=== PATIENT | male | born 1985 | race Hispanic/Latino ===

== ENCOUNTER 2023-05-15 16:16 | Emergency (ER) | payer SELFPAY ==
[~2023-05-15 16:16] MED LIST: Iopamidol 370 76% 100 ML VIAL ONE
[2023-05-15 22:42] LABS: #Eosinphils 0.1 10x3/uL (0.0-0.5); #Monocytes 1.3 10x3/uL (0.0-1.1); #Neutrophils 5.8 10x3/uL (1.5-8.4); %Basophils 0.5 % (0.0-2.0); %Eosinophils 0.6 % (0.0-6.0); %Lymphocytes 11.7 % (18.0-47.0); %Monocytes 15.6 % (0.0-10.0); %Neutrophils 71.4 % (40.0-75.0); Hematocrit 40.7 % (38.8-50.0); Hemoglobin 14.7 g/dL (13.5-17.5); Mean Corpuscular HGB CONC 36.1 g/dL (32.0-36.0); Mean Corpuscular Hemoglobin 32.7 pg (27.0-33.0); Mean Corpuscular Volume 90.4 fl (81.2-95.1); Mean Platelet Volume 12.9 fl (7.4-10.4); Platelet Count 110 10x3/uL (150-450); RBC Distribution Width 12.7 % (11.5-14.5); White Blood Cell (WBC) Count 8.1 10x3/uL (3.5-10.5)
[2023-05-15 22:50] LABS: INR-International Normal Ratio 1.1; PTT 30.2 sec (22.0-33.0); Prothrombin Time 12.3 sec (9.5-12.1)
[2023-05-15 23:35] LABS: ALT (SGPT) 118 U/L (8-55); AST (SGOT) 87 U/L (5-34); Albumin 4.4 g/dL (3.5-5.0); Alkaline Phosphatase 91 U/L (40-110); Anion Gap 19 mmol/L (10-20); BUN (Urea Nitrogen) 8 mg/dL (8.9-20.6); Bilirubin, Total 1.7 mg/dL (0.2-1.2); Calc. Creatinine Clearance 0 mL/min (70-130); Calcium 9.3 mg/dL (7.8-10.44); Carbon Dioxide 20 mmol/L (22-29); Chloride 98 mmol/L (98-107); Estimated GFR 121; Globulin 3.6 g/dL (2.4-3.5); Glucose 267 mg/dL (70-105); Potassium 4.1 mmol/L (3.5-5.1); Sodium 133 mmol/L (136-145)
[2023-05-16] MEDS ORDERED: Apixaban 5 MG TAB ONE (00:21)
[2023-05-16] MEDS ORDERED: Morphine 4 MG/ML VIAL ONE (00:22)
[2023-05-16] MEDS ORDERED: Ondansetron PF 4 MG/2 ML Vial ONE (00:22)
[2023-05-16 00:53] LABS: Platelet Adequacy Comment Appears Decreased; RBC Morph Comment Within Normal Limits
== END 2023-05-16 00:47 | disposition home or self-care (01) ==
LOC: CSHERS 16:16
DX: I82.462 Acute embolism and thrombosis of left calf muscular vein (principal)
CPT/HCPCS: 71275; 80053; 83880; 84484; 85025; 85610; 85730; 93005; 96374; 96375; J2270; J2405; Q9967

== ENCOUNTER 2023-05-18 16:57 | Emergency (ER) | payer SELFPAY | END 2023-05-18 18:43 | disposition home or self-care (01) | LOC: CSHERS 16:57 | DX: I82.402 Acute embolism and thrombosis of unspecified deep veins of left lower extremity (principal); E10.9 Type 1 diabetes mellitus without complications | CPT/HCPCS: 99283 ==